=== PATIENT | male | born 1935 | race Caucasian/White ===

== ENCOUNTER → 2016-10-16 | Outpatient (CLI) | payer OTHER | END | disposition home or self-care (01) | LOC: PCVCCLINIC 13:38 | PROVIDERS: ATTEND Internal Medicine Cardiovascular Disease | DX: I25.10 Atherosclerotic heart disease of native coronary artery without angina pectoris (principal); E78.5 Hyperlipidemia, unspecified; I10 Essential (primary) hypertension; I73.9 Peripheral vascular disease, unspecified; R60.9 Edema, unspecified | CPT/HCPCS: 93005; G0463 ==

== ENCOUNTER → 2017-03-25 | Outpatient (CLI) | payer OTHER | END | disposition home or self-care (01) | LOC: PCVCCLINIC 10:42 | PROVIDERS: ATTEND Internal Medicine Cardiovascular Disease | DX: I25.10 Atherosclerotic heart disease of native coronary artery without angina pectoris (principal); I10 Essential (primary) hypertension; I47.1 Supraventricular tachycardia; I73.9 Peripheral vascular disease, unspecified; E78.00 Pure hypercholesterolemia, unspecified; Z79.82 Long term (current) use of aspirin; Z79.899 Other long term (current) drug therapy; Z95.1 Presence of aortocoronary bypass graft; Z87.891 Personal history of nicotine dependence | CPT/HCPCS: G0463 ==

== ENCOUNTER → 2017-04-02 | Outpatient (CLI) | payer OTHER ==
--- NOTE | 2017-04-02 16:05 | PCVCIMAG ---
EXAM: BILATERAL RENAL ULTRASOUND AND BILATERAL RENAL DUPLEX INDICATION: Hypertension. Chronic renal insufficiency. FINDINGS: Right kidney: Length measures 7.4 cm. No hydronephrosis or extensive renal scarring. Right renal duplex: Adequate technical quality. 80% proximal renal artery stenosis. The aortic to renal artery ratio is 2.0. The renal vein is patent. Left kidney: Length measures 12.3 cm. No hydronephrosis or extensive renal scarring. Several benign cysts in the mid and lower portion of the left kidney the largest in the lower pole measuring 4.9 x 6.1 x 6.3 cm. Left renal duplex: Adequate technical quality. 90% renal artery stenosis. The aortic to renal artery ratio is 2.3. The renal vein is patent. Bladder: Distention of the urinary bladder with a volume of 697 cc. IMPRESSION: 80% proximal right renal artery stenosis with right kidney somewhat small in size. 90% proximal left renal artery stenosis. Incidental note is made of mild/moderate velocity limitation abdominal aorta. Distention of the urinary bladder. LOC:[id number]
== END | disposition home or self-care (01) ==
LOC: PCVCIMAG 14:22
PROVIDERS: ATTEND Internal Medicine Cardiovascular Disease
DX: I12.9 Hypertensive chronic kidney disease with stage 1 through stage 4 chronic kidney disease, or unspecified chronic kidney disease (principal); N18.9 Chronic kidney disease, unspecified; E78.4 Other hyperlipidemia; N28.1 Cyst of kidney, acquired; I70.1 Atherosclerosis of renal artery; N32.89 Other specified disorders of bladder; I47.1 Supraventricular tachycardia
CPT/HCPCS: 76770; 93975

== ENCOUNTER → 2017-04-07 | Outpatient (CLI) | payer OTHER ==
[~2017-04-07] MED LIST: CLOPIDOGREL BISULFATE 75 MG TABLET ONE; DIAZEPAM 10 MG TABLET. ONE; HEPARIN SODIUM 5,000 UNIT/ML VIAL for PCVC. ONE; IODIXANOL 270 MG/ML 100 ML VIAL. ONE; IV NORMAL SALINE 500ML BAG 1,000 ML ONE; LIDOCAINE 1% Multi-Dose 20 ML VIAL. ONE; LIDOCAINE 1%/EPI 1:100,000 20 ML VIAL. ONE; MIDAZOLAM HCL/PF 2 MG/2 ML VIAL. ONE; fentaNYL PF VIAL 100 MCG/2 ML VIAL ONE
--- NOTE | 2017-04-07 11:32 | PCVCINTER ---
EXAM: 1. AORTOGRAM AND BILATERAL ILIOFEMORAL ANGIOGRAM 2. BILATERAL RENAL ANGIOGRAPHY 3. LEFT RENAL ARTERY STENT PLACEMENT. INDICATION: Peripheral arterial disease. Coronary artery disease. Hypertension. Renal atherosclerosis. PROCEDURE: Procedure and risks of angiography intervention is appropriate including limb loss stroke and were discussed with the patient's family and consent obtained. The patient's right groin was prepped abnormal sterile fashion. IV conscious sedation was used to procedure with appropriate monitoring from 8:30 AM through 9:30 AM. Ultrasound was used to interrogate the right groin and showed the right common femoral artery to be patent. A permanent spot film was obtained. Under ultrasound guidance access into the right common femoral artery was obtained and a 5 Polish sheath was placed. Through this a 5 Polish flush catheter was placed into the abdominal aorta at the level of the renal arteries and AP aortogram was performed. Catheter was positioned at the aortic bifurcation and bilateral iliofemoral angiography performed. Catheter was exchanged for a visceral catheter which was placed into the right renal arteries and right renal angiograms obtained. Catheter was placed into the the left renal arteries and left renal angiograms were obtained. Patient was given 4000 units of heparin. Stent placement across the areas of high-grade stenosis in the left renal artery was carried out with a 4 x 15 [place] blue stent with subsequent dilatation to 4.3 mm. Catheters and wires removed. Sheath was removed and hemostasis obtained using the FISH device. No immediate complications. Only 20 cc of iodinated contrast was used for the entire procedure. FINDINGS: Aortogram: There is one right and one left renal artery. Moderate calcific plaque infrarenal abdominal aorta without significant stenosis. Bilateral iliofemoral angiography:: Moderate irregular plaque proximal right common iliac artery results in 50% stenosis not felt to be critically flow-limiting. There is ectasia in the lower right common iliac artery. Moderate plaque left common iliac artery without significant stenosis. 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 The right internal iliac artery is patent. Both external iliac arteries are patent. Moderate calcific plaquing in both common femoral arteries without high-grade stenosis. The profunda femoral arteries are patent bilaterally. The visualized portions of the upper superficial femoral arteries are patent as well. Right renal artery: Mild plaque proximal vessel does not cause significant stenosis. No branch vessel stenosis. Left renal artery: Moderate plaque proximal vessel results in 90% stenosis. No branch vessel stenosis. Left renal artery:: Following procedure as above the vessel shows good patency with good position of the stent. IMPRESSION: 90% stenosis proximal left renal artery was treated with stent placement with good patency restored. No right renal artery stenosis. 50% right common iliac artery stenosis due to irregular plaque. follow up LOC:[id number]
== END | disposition home or self-care (01) ==
LOC: PCVCINTER 07:37
PROVIDERS: ATTEND Nuclear Medicine Nuclear Cardiology
DX: I70.1 Atherosclerosis of renal artery (principal); I73.9 Peripheral vascular disease, unspecified; I10 Essential (primary) hypertension; I25.10 Atherosclerotic heart disease of native coronary artery without angina pectoris
CPT/HCPCS: 36252; 37236; 75630; 76937; 99152; 99153; C1725; C1751; C1769; C1876; C1887; C1894; J0690; J1644; J2250; J3010; J3490; J7040; Q9966

== ENCOUNTER → 2017-04-10 | Outpatient (CLI) | payer OTHER | END | disposition home or self-care (01) | LOC: PCVCCLINIC 08:23 | PROVIDERS: ATTEND Internal Medicine Cardiovascular Disease | DX: I12.9 Hypertensive chronic kidney disease with stage 1 through stage 4 chronic kidney disease, or unspecified chronic kidney disease (principal); N18.1 Chronic kidney disease, stage 1; I73.9 Peripheral vascular disease, unspecified; I25.10 Atherosclerotic heart disease of native coronary artery without angina pectoris; E78.5 Hyperlipidemia, unspecified | CPT/HCPCS: 36415 ==

== ENCOUNTER → 2017-08-13 | Outpatient (CLI) | payer OTHER | END | disposition home or self-care (01) | LOC: PCVCIMAG 08:13 | DX: I25.10 Atherosclerotic heart disease of native coronary artery without angina pectoris (principal); I48.91 Unspecified atrial fibrillation; E78.00 Pure hypercholesterolemia, unspecified; I12.9 Hypertensive chronic kidney disease with stage 1 through stage 4 chronic kidney disease, or unspecified chronic kidney disease; N18.9 Chronic kidney disease, unspecified; I70.1 Atherosclerosis of renal artery; N28.1 Cyst of kidney, acquired; R94.31 Abnormal electrocardiogram [ECG] [EKG]; Z79.82 Long term (current) use of aspirin; Z79.899 Other long term (current) drug therapy; Z87.891 Personal history of nicotine dependence | CPT/HCPCS: 36415; 76770; 93005; 93975; G0463 ==

== ENCOUNTER → 2017-09-10 | Outpatient (CLI) | payer OTHER ==
[~2017-09-10] MED LIST changes: -CLOPIDOGREL BISULFATE 75 MG TABLET ONE; -DIAZEPAM 10 MG TABLET. ONE; -HEPARIN SODIUM 5,000 UNIT/ML VIAL for PCVC. ONE; -IODIXANOL 270 MG/ML 100 ML VIAL. ONE; -IV NORMAL SALINE 500ML BAG 1,000 ML ONE; -LIDOCAINE 1% Multi-Dose 20 ML VIAL. ONE; -LIDOCAINE 1%/EPI 1:100,000 20 ML VIAL. ONE; -MIDAZOLAM HCL/PF 2 MG/2 ML VIAL. ONE; +REGADENOSON 0.4 MG/5 ML DISP.SYRIN. IV; -fentaNYL PF VIAL 100 MCG/2 ML VIAL ONE
== END | disposition home or self-care (01) ==
LOC: PCVCIMAG 10:28
DX: I48.91 Unspecified atrial fibrillation (principal); I25.10 Atherosclerotic heart disease of native coronary artery without angina pectoris; I10 Essential (primary) hypertension; E78.00 Pure hypercholesterolemia, unspecified; I73.9 Peripheral vascular disease, unspecified; R00.2 Palpitations; I25.2 Old myocardial infarction; R94.31 Abnormal electrocardiogram [ECG] [EKG]; Z79.899 Other long term (current) drug therapy; Z79.82 Long term (current) use of aspirin; Z87.891 Personal history of nicotine dependence
CPT/HCPCS: 78452; 93005; 93017; A9500; G0463; J2785